=== PATIENT | female | born 1955 | race Caucasian/White ===

== ENCOUNTER → 2018-03-07 | Day surgery (SDC) | payer MEDICARE, BC ==
[2018-03-07 12:48] VITALS: BP 152/85; TEMP 97.4; BMI 40.3
== END ==
LOC: SDC/OP 11:07
PROVIDERS: ATTEND Specialist
DX: I12.0 Hypertensive chronic kidney disease with stage 5 chronic kidney disease or end stage renal disease (principal); N18.6 End stage renal disease; E78.5 Hyperlipidemia, unspecified; E03.9 Hypothyroidism, unspecified; K21.9 Gastro-esophageal reflux disease without esophagitis; G43.909 Migraine, unspecified, not intractable, without status migrainosus; G89.29 Other chronic pain; M19.90 Unspecified osteoarthritis, unspecified site; D64.9 Anemia, unspecified; Z53.9 Procedure and treatment not carried out, unspecified reason; Z88.2 Allergy status to sulfonamides; Z88.8 Allergy status to other drugs, medicaments and biological substances

== ENCOUNTER 2018-03-14 11:55 | Day surgery (SDC) | payer MEDICARE, BC ==
[2018-03-13 15:41] VITALS: BMI 39.6
[~2018-03-14 11:55] MED LIST: Iopamidol 370 76% 100 ML VIAL ONE
[2018-03-14] MEDS ORDERED: Midazolam HCl 2 mg/2 ml Vial ONE (14:38)
[2018-03-14] MEDS ORDERED: Fentanyl 100 MCG/2 ML VIAL ONE (14:38)
[2018-03-14] MEDS ORDERED: Sodium Chloride 0.9% 50 ML ONE (15:42)
[2018-03-14] MEDS ORDERED: Heparin 10,000 UNITS/ 10 ML VIAL ONE (16:00)
--- NOTE | 2018-03-14 16:22 | CT ---
CT GUIDED ABSCESS DRAINAGE 03/14/18 HISTORY: Persistent fluid collection within abdomen and pelvis concerning for abscess. TECHNIQUE/FINDINGS: Planning CT of the abdomen and pelvis with IV contrast was performed prior to the procedure. This blayne dy demonstrates unremarkable appearance of imaged bilateral lung bases aside from trace pleural fluid on the right. There is coronary arterial calcification noted, incompletely assessed. No free intraperitoneal air is noted. There is small volume free fluid in the perihepatic region, measuring up to 1.7 cm in AP dimension an terior to the left lobe of the liver. Tiny hypodense right hepatic lobe lesion measuring in the 4-5 m m range noted on axial image 17 and axial image 23, too small to characterize. Spleen is grossly unre markable. There is nonspecific small volume fluid between the gastric body laterally and the splenic hilum. There is free fluid noted in the left pericolic gutter. The pancreas and bilateral adrenal glands appear grossly unremarkable. Gallbladder appears surgically absent. The left kidney is markedly atrophic. The right kidney also demonstrates marked atrophy. These findin gs are consistent with the patient's history of end-stage renal disease. No lymphadenopathy identifie d in the abdomen or pelvis. The urinary bladder is markedly atrophic. Evaluation of the bowel is limited without oral contrast media. There is extensive diverticulosis of the colon, most prominent in the region of the sigmoid colon. There is a rim enhancing lobulated fluid collection in the anterior midline pelvis/right hemipelvis s uperior to a markedly atrophic urinary bladder. This fluid collection measures 10.2 x 6.2 cm and is s uspicious for possible abscess. There is nonspecific stranding of the adjacent mesenteric fat along t he superior and anterior margin of this fluid collection. There is nonspecific asymmetric increased fat in the retroperitoneum on the right encircling the righ t kidney and extending inferiorly into the right hemipelvis anterior to and lateral to the right psoa s muscle with ventral deviation of the ascending colon. This is of uncertain clinical significance. L ow grade liposarcoma of the retroperitoneum cannot be excluded. The uterus appears surgically absent. There is a nonspecific subcutaneous round lesion on the left anteriorly at the axial level of the lef t greater trochanter measuring 2.9 cm with Hounsfield units of approximately 26. A mildly complex noemi aceous cyst is favored. Clinical correlation is essential. There is multilevel lower lumbar spine facet hypertrophic change. Once this planning examination was performed, informed consent for CT guided abscess drainage was obtained. The patient received conscio us sedation by a member of the Division of Anesthesia during the procedure. Skin overlying the fluid collection was prepped and draped in normal sterile fashion with the patient on the CT scanner. A 5 F rench Yueh catheter was advanced into the collection and aspiration yields yellow fluid. A sample was obtained and sent to the Laboratory for assessment. Through the Yueh catheter, an Amplatz wire was advanced and curled within the fluid collection. 8 [facility] dilator was advanced and removed. Subsequently, an 8 Romanian all purpose drainage catheter was adv anced over the wire. The wire and inner stiffener was removed and the pigtail was formed within the c avity. Subsequently, approximately further aspiration yields thick yellow fluid with floating interna l debris. Approximately 85 total mL were removed. Pigtail was formed and the catheter was stitched in place. Postprocedural CT examination demonstrates the pigtail catheter to be well formed within the cavity with marked interval reduction in the size of the cavity. A small residual fluid collection is seen laterally measuring approximately 3.8 x 4.4 cm and a small inferior component is noted measurin g in the 2.5 cm range. Within the right lower quadrant mesentery, there are multiple round soft tissue nodules which measure up to 8-9 mm suggesting small nodes. Patient tolerated the procedure well. Patient was instructed to flush the catheter twice a day with 10 mL of sterile saline. The patient is scheduled to see Dr. Egan in clinic on , 03/16/18. IMPRESSION: 1. Successful drainage and catheter placement within pelvic fluid collection. 2. Nonspecific free fluid within the abdomen and pelvis. 3. Extensive diverticulosis without evidence for diverticulitis. 4. Nonspecific prominent fat in the retroperitoneum and the right perirenal and infrarenal regio n as described above. This may represent a large retroperitoneal lipoma or atypical lipomatous tumor, including low grade liposarcoma. Code T POS: KERI
--- NOTE | 2018-03-14 17:19 | PRG ---
DATE OF SERVICE: 03/14/2018 Ms. Tripathi arrived today to have a CT-guided drainage and intra-abdominal fluid collection under anest hesia due to anxiety regarding needles. Patient has a hemodialysis catheter. She does not have a fi stula. She has a fluid collection that Dr. An, Radiology, drained under CT guidance and drainage appeared to be purulent. She has been sent home with saline irrigations twice a day, instructed on irrigation and drainage. She will record the drainage output. The patient has been off antibiotics for more than a week and asymptomatic. Dr. Scott saw her previously and managed antibiotics from the [facility]. Apparently, she had a dialysis fluid that was positive for Helen and treated with Diflucan in January. She then had some nonspecific symptoms and had a repeat CAT scan demonstrated fluid collection, but she would not allow the radiologist there to drain that at the [facility]. Patient apparently was receiving vancomycin during dialysis, but this was discontinued about two weeks ago. Food Services Director is Dr. Lo. Today, she underwent CT guided drain age and Dr. An, radiologist, felt the fluid was purulent. I discussed these findings with Dr. Solares. I then wrote her a prescription for Cipro 250 mg p.o. b.i.d. for 10 days, Flagyl 250 p.o. t.i.d. for 10 days and Diflucan 100 mg p.o. for 14 days. She is instructed on drain irrigation, 10 mL of saline irrigating it twice a day and recording the output. She will return to see me in 48 hours to discus s the culture results and see how she is doing. We will probably arrange followup CAT scan next week .
== END 2018-03-14 16:55 | disposition home or self-care (01) ==
LOC: SDC/OP 11:55
PROVIDERS: ATTEND Specialist
PROC: 0W9J30Z Drainage of Pelvic Cavity with Drainage Device, Percutaneous Approach (ICD-10-PCS; principal; 2018-03-14)
DX: K65.1 Peritoneal abscess (principal); N73.9 Female pelvic inflammatory disease, unspecified; I12.0 Hypertensive chronic kidney disease with stage 5 chronic kidney disease or end stage renal disease; N18.6 End stage renal disease; D63.1 Anemia in chronic kidney disease; K57.30 Diverticulosis of large intestine without perforation or abscess without bleeding; M19.90 Unspecified osteoarthritis, unspecified site; Z99.2 Dependence on renal dialysis; Z88.2 Allergy status to sulfonamides; Z88.8 Allergy status to other drugs, medicaments and biological substances; Z91.048 Other nonmedicinal substance allergy status; Z79.02 Long term (current) use of antithrombotics/antiplatelets; Z79.82 Long term (current) use of aspirin; Z79.899 Other long term (current) drug therapy
CPT/HCPCS: 49406; 74177; 77002; 77012; 87070; 87205; C1729; A4216; J1644; J2250; J3010

== ENCOUNTER 2018-03-20 12:50 | Outpatient (CLI) | payer MEDICARE, BC ==
--- NOTE | 2018-03-20 14:04 | CT ---
NONCONTRAST CT ABDOMEN AND PELVIS: Date: 03/20/18 HISTORY: End-stage renal disease. Follow-up fluid collection in the pelvis post drainage catheter placement. COMPARISON: 03/14/18. FINDINGS: There is minimal atelectasis in the right middle lobe and lingula. Vascular calcifications seen in the coronary arteries and involving the abdominal aorta and iliac art eries. There is severe atrophy of the left kidney again present. There is also severe renal cortical thinnin g involving the right kidney with several subcentimeter too small to characterize hypodense lesions a gain involving the right kidney. Post cholecystectomy changes are noted. There is an All-Purpose drainage catheter seen within a fluid collection in the mid pelvis. The previ ously noted collection is smaller in size compared to the prior exam. Measurement of the collection i n a similar location compared to the prior exam demonstrates a transverse measurement of 6.8 cm and A P dimension of 4.4 cm, and on the prior study the collection measured 10.2 cm transverse x 6.2 cm AP. Collection was irregular in shape on the prior exam and other portions of the collection are also sm aller in size. The previously seen fluid collection lateral left abdomen in the region of the left paracolic gutter is again seen but is also decreased in size. There is fluid seen adjacent to the liver and spleen, and this fluid has also diminished adjacent to the spleen. The edema and stranding in the left upper quadrant has decreased from the prior exam. Subcentimeter low density foci in the right hepatic lobe are again noted. The spleen, pancreas, and bilateral adrenal glands demonstrate a grossly normal nonenhanced CT appear ance. The urinary bladder is completely decompressed. Numerous colonic diverticula are seen with increased density seen within several diverticula which ma y be related to prior contrast or fecaliths. There is evidence of hysterectomy. The previously noted increased fat in the right retroperitoneum is again seen. This is again of uncer tain clinical significance. 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 Nonspecific cystic lesion subcutaneous soft tissues anteriorly at the level of the greater trochanter on the left is again seen and unchanged. No other interval change. IMPRESSION: 1. Interval decrease in size of the lobulated pelvic fluid collection, although fluid collection valentin s persist. 2. Interval decrease in amount of fluid in the left paracolic gutter. 3. Interval decrease in the amount of fluid adjacent to the spleen and mesenteric edema in the left upper quadrant. 4. Stable amount of perihepatic fluid. 5. Severe atrophy left kidney with severe cortical thinning of the right kidney with several subcent imeter too small to characterize hypodense lesions involving the right kidney. 6. Nonspecific prominent fat in the retroperitoneum in the right perirenal and infrarenal location. This may represent a large retroperitoneal lipoma or atypical lipomatous lesion, including low grade liposarcoma. 7. Remainder of the findings are as described above. POS: [facility]
== END 2018-03-20 12:51 | disposition home or self-care (01) ==
LOC: SCSCT 12:50
PROVIDERS: ATTEND Specialist
DX: N18.6 End stage renal disease (principal); L02.211 Cutaneous abscess of abdominal wall; N26.1 Atrophy of kidney (terminal); N28.89 Other specified disorders of kidney and ureter; Z98.890 Other specified postprocedural states
CPT/HCPCS: 74176

== ENCOUNTER 2018-03-27 09:57 | Outpatient (CLI) | payer MEDICARE, BC ==
--- NOTE | 2018-03-27 11:54 | ULT ---
BILATERAL UPPER EXTREMITY VENOUS MAPPING FOR DIALYSIS ACCESS: HISTORY: A 62-year-old with a history of ESRD. FINDINGS: RIGHT CEPHALIC VEIN: Proximal humerus 1.4 mm Mid humerus 1.4 mm Distal 1.9 mm Elbow 4.2 mm Proximal forearm 0.9 mm Mid 1.2 mm Distal 1.1 mm RIGHT BASILIC VEIN: Proximal humerus 4.3 mm Mid humerus 2.7 mm Distal 2.6 mm Elbow 1.1 mm Proximal forearm 1.0 mm Mid 0.8 mm Distal 0.8 mm RIGHT BRACHIAL ARTERY: 4.3 mm RIGHT RADIAL ARTERY: 1.7 mm RIGHT ULNAR ARTERY: 0.8 mm LEFT CEPHALIC VEIN: Proximal humerus 1.3 mm Mid humerus 1.2 mm Distal 1.5 mm Elbow 3.4 mm Proximal forearm 1.6 mm Mid 1.2 mm Distal 0.8 mm LEFT BASILIC VEIN: Proximal humerus 2.2 mm Mid humerus 1.8 mm Distal 1.3 mm Elbow 0.8 mm Proximal forearm 0.6 mm Mid 0.9 mm Distal 0.6 mm LEFT BRACHIAL ARTERY: 4.6 mm RADIAL ARTERY: 1.7 mm ULNAR ARTERY: 2.0 mm POS: [facility]
== END 2018-03-27 09:58 | disposition home or self-care (01) ==
LOC: SCSULT 09:57
PROVIDERS: ATTEND Specialist
DX: Z01.818 Encounter for other preprocedural examination (principal); N18.6 End stage renal disease
CPT/HCPCS: 93970; G0365

== ENCOUNTER 2018-05-03 09:41 | Outpatient (CLI) | payer MEDICARE, BC ==
[2018-05-03 11:15] LABS: #Basophils 0.1 thou/uL (0.0-0.2); #Eosinphils 0.3 thou/uL (0.0-0.7); #Lymphocytes 1.2 thou/uL (1.20-3.40); #Monocytes 0.4 thou/uL (0.11-0.59); #Neutrophils 5.5 thou/uL (1.40-6.50); %Basophils 0.7 % (0.0-1.0); %Eosinophils 3.8 % (0.0-10.0); %Lymphocytes 16.1 % (21.0-51.0); %Monocytes 5.8 % (0.0-10.0); %Neutrophils 73.6 % (42.0-75.0); Hemoglobin 10.5 g/dL (12.0-16.0); Mean Corpuscular HGB CONC 32.9 g/dL (32.0-36.0); Mean Corpuscular Hemoglobin 33.3 pg (27.0-31.0); Mean Platelet Volume 8.8 fL (7.4-10.4); Platelet Count 185 thou/uL (130-400); RBC Distribution Width 15.1 % (11.5-14.5); Red Blood Cell (RBC) Count 3.16 mill/uL (4.20-5.40); White Blood Cell (WBC) Count 7.5 thou/uL (4.8-10.8)
[2018-05-03 11:31] LABS: Anion Gap 14 mmol/L (10-20); BUN (Urea Nitrogen) 20 mg/dL (9.8-20.1); Calc. Creatinine Clearance 0 mL/min (70-130); Carbon Dioxide 33 mmol/L (23-31); Chloride 99 mmol/L (98-107); Estimated GFR-MDRD 7; Glucose 111 mg/dL (80-115); Potassium 3.6 mmol/L (3.5-5.1); Sodium 142 mmol/L (136-145)
== END 2018-05-03 09:42 | disposition home or self-care (01) ==
LOC: LABBT 09:41
PROVIDERS: ATTEND Specialist
DX: Z01.818 Encounter for other preprocedural examination (principal); N18.6 End stage renal disease; K65.1 Peritoneal abscess; L72.3 Sebaceous cyst
CPT/HCPCS: 80048; 85025; 93005; 93010

== ENCOUNTER 2018-05-09 09:18 | Day surgery (SDC) | payer MEDICARE, BC ==
[2018-05-03 09:57] VITALS: BMI 38.4
--- NOTE | 2018-05-03 12:11 | HP ---
HISTORY OF PRESENT ILLNESS: Tonja Tripathi is a 62-year-old female who has had a previous peritoneal di alysis catheter removed because of infection. She had a fluid collection that was CT guided drained. Catheter was removed. She had a question of retroperitoneal fatty collection that was felt to be j ust fatty tissue and not a tumor. The patient required anesthesia for CT guided drainage due to her phobia, anxiety. She is followed by Dr. hZu. Her transistor tester is Dr. Lo. She dialyzes Tuesday, Tuesday, and Tuesday at [facility] at 3:30 p.m. Consideration for a fistula placement was given and vein mapping performed revealing suboptimal veins. She denies placem ent of an attempted fistula in her arm and wants to proceed with laparoscopic PD catheter. She wears her beltline at the exit site of her previous PD catheter and would like it higher at the umbilical level. She is morbidly obese with a dependent pannus. We have also discussed weight loss surgery in the past, place her in the weight range for renal transplant. The patient states she has lost 10 po unds on her own and only has 2 pounds to lose to reach her goal for entry into the renal transplant. MEDICATIONS: Clonidine 0.3 mg twice a day, Crestor 5 mg once a day, Singulair 10 mg evening, Sensipa r 30 mg a.c. once a day, aspirin 81 mg a day, Renvela 800 mg 3 tablets with meals 3 times a day, fish oil daily, D3 daily, calcium acetate daily, minoxidil 2.5 mg as needed twice a day. Hydrocodone 5/3 25 p.r.n. pain, allopurinol 100 mg daily, Alpha Lipoic Acid, calcitriol, Colace, Dulcolax, Fosrenol, levothyroxine daily, Midodrine p.r.n., Plavix 75 mg a day, Symbicort as needed, turmeric daily, vitam in B12 daily. PAST SURGICAL HISTORY: Hysterectomy, cardiac stress test 2009, normal, tonsillectomy 1975. CT-guide d drainage abdomen/pelvis, PD catheter placed and removed. PAST MEDICAL HISTORY: 1. Anemia. 2. Arthritis. 3. Hypertension. 4. End-stage renal disease on maintenance dialysis Tuesday, Tuesday, and Tuesday 3:30 p.m. at [facility] 5. Morbid obesity. 6. Metabolic syndrome. 7. Anxiety. FAMILY HISTORY: Negative. REVIEW OF SYSTEMS: Noncontributory. PHYSICAL EXAMINATION: VITAL SIGNS: Weight 210 pounds, 5 foot 2, 38 BMI, 145/73, 73, 99.3 degrees. HEENT: Unremarkable. LUNGS: Clear to auscultation. CARDIAC: Regular rate and rhythm without murmur or gallop. ABDOMEN: Soft, obese, dependent pannus. Scar from previous peritoneal dialysis access site left low er quadrant well healed. Scar umbilical area, well healed, no evident hernia. EXTREMITIES: No ankle edema, palpable pedal pulses. LYMPH: No lymphadenopathy groins, neck, axilla. NEURO: Cranial nerves intact. No neurological deficits. SKIN: Skin color normal. ASSESSMENT AND PLAN: End-stage renal disease with suboptimal veins on ultrasound vein mapping. Refu ses exploration of her veins for primary fistula. We will plan laparoscopic peritoneal dialysis cath eter placement as an outpatient. Risk of infection, bleeding, reoperation discussed, she consents. Malfunction of catheter possibilities discussed. Questions answered.
[2018-05-09] MEDS ORDERED: Glycopyrrolate 0.2 MG/ML 5 ML SYRINGE ONE (10:02)
[2018-05-09] MEDS ORDERED: Lidocaine 1% PF 5 ML VIAL ONE (10:02)
[2018-05-09] MEDS ORDERED: PROPOFOL 200 MG/20 ML VIAL ONE (10:02)
[2018-05-09] MEDS ORDERED: Metoclopramide HCl 10 MG/2 ML VIAL ONE (10:02)
[2018-05-09] MEDS ORDERED: Ondansetron HCl/PF 4 MG/2 ML Vial ONE (10:02)
[2018-05-09] MEDS ORDERED: Fentanyl 100 MCG/2 ML VIAL ONE (14:02)
[2018-05-09] MEDS ORDERED: traMADol HCl 50 MG TAB ONE (15:27)
[2018-05-09] MEDS ORDERED: Heparin 10,000 UNITS/ 10 ML VIAL ONE ×2 (17:35)
--- NOTE | 2018-05-09 19:43 | OP ---
PREOPERATIVE DIAGNOSES: End-stage renal disease, obesity, history of infected peritoneal dialysis ca theter, history of percutaneous drainage fluid collection in abdomen, sebaceous cyst left lower quadr ant abdominal wall, left groin. POSTOPERATIVE DIAGNOSES: End-stage renal disease, obesity, history of infected peritoneal dialysis c atheter, history of percutaneous drainage fluid collection in abdomen with right pelvic abscess, wall ed off by the omentum, sebaceous cyst left lower quadrant abdominal wall, left groin. PROCEDURE: laparoscopic evacuation of pelvic abscess, laparoscopic adhesiolysis, laparoscopic omento pexy. Excision of sebaceous cyst, left lower quadrant, left groin. A 5 cm incision, layered closure . SURGEON: Dr. Roosevelt Egan. ANESTHESIA: General. Local 0.5% Marcaine with epinephrine, 30 mL, mixed with 2% Xylocaine, 10 mL. Note, during the operation because of the findings of the green purulent fluid, walled off as describ ed even though this most likely was a sterile collection, peritoneal dialysis catheter was not placed and we placed a later time. PROCEDURE IN DETAIL: The patient was to the operating room under general anesthesia, abdomen was pre pared with ChloraPrep, draped in routine fashion. Local anesthetic infiltrated into the skin and sub cutaneous tissue about each port site. Left lateral subcostal incision made. Pneumoperitoneum to 15 mmHg obtained with the Veress needle, replacing it with a 5 port. Right lateral subcostal incision made and a 5-port placed laparoscopic visualization. An incision was made in the right lower quadran t for a counter incision for the plan of placement of peritoneal dialysis catheter, 8 mm port placed under laparoscopic visualization directed caudally and the rectus sheath into the pelvis for adhesiol ysis and eventual placement of the catheter. Once the omentum was peeled back away from the right pe lvis, there was noted to be a green purulent thick discharge that was evacuated. This cavity was ope andrew even more irrigated and evacuated, and was felt at that this time that I should not place a perit pascal dialysis catheter even though this was likely a sterile collection. To accomplish omentopexy a nd adhesiolysis, left lateral incision made and left lower quadrant incision made and a 5-port placed . Omentum carefully dissected free from the viscera from the pelvis freeing it and perform omentopex y with 2-0 Ethibond sutures, GraNee needle fast secured to the upper abdomen. Abdominal cavity irrig ated. There were no adhesions otherwise seen. At this point, the abdominal cavity irrigated, irriga nt evacuated, pneumoperitoneum evacuated. All instruments were removed. Left lower quadrant incision was made and carried down the skin and subcutaneous tissue and sebaceous cyst dissected free, excised. Hemostasis gained with the cautery. Subcutaneous tissues approximate d with 3-0 Monocryl, skin with subdermal 4-0 Monocryl and DermaGlue applied. The patient tolerated t he procedure well. Dermabond applied.
--- NOTE | 2018-05-12 05:57 | PQF ---
[facility] POST DISCHARGE CLINICAL DOCUMENTATION IMPROVEMENT CLARIFICATION FORM l Todays Date: 05/11/18 l Patients Name MINDY POON l l Admit Date 05/09/18 l Disch Date 05/09/18 Multiplex Operator Name Bereket Rowley Email: [email or web address] Cell: [phone] Present Clinical Indicators - Signs / Symptoms Results and Location in Medical Record [ ] Documentation of: [ ] [ ] Documentation of: [ ] [ ] Documentation of: [ ] [ ] Documentation of: [ ] [ ] Risks [ ] [ ] [ ] Treatment [ ] Epidermal inclusion cyst of L groin Please specify size of excised cyst with adequate margins in Operative Report [ ] [ ] Roosevelt Barajas The documentation in this patients record requires clarification to ensure coding compliance and accuracy. Check the appropriate box and include in your discharge summary. [ ] [ ] [ ] [ ] Please check this box if this does not apply to this patient [ ] Unable to determine [ ] Other diagnosis: Review the following information and exercise your independent professional judgment in responding to the clarification. Based upon the clinical findings, risk factors, and treatment, please clarify if you are treating one of the above probable or suspected diagnoses. Physician Signature: Date Time MTDD
--- NOTE | 2018-06-30 09:42 | PQF ---
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 Check the appropriate box and include in your discharge summary/addendum. [ ] [ ] [ ] Please check this box if this does not apply to this patient [ ] Unable to determine [ ] Other diagnosis/procedure: Review the following information and exercise your independent professional judgment in responding to the clarification. Based upon the clinical findings, risk factors, and treatment, please clarify if you are treating one of the above probable or suspected diagnoses. Physician Signature: Date Time MTDD
== END 2018-05-09 17:45 | disposition home or self-care (01) ==
LOC: SDC 09:18
PROVIDERS: ATTEND Specialist
PROC: 0DNW4ZZ Release Peritoneum, Percutaneous Endoscopic Approach (ICD-10-PCS; principal; 2018-05-09)
PROC: 0DQU4ZZ Repair Omentum, Percutaneous Endoscopic Approach (ICD-10-PCS; 2018-05-09)
PROC: 0HBAXZZ Excision of Inguinal Skin, External Approach (ICD-10-PCS; 2018-05-09)
DX: K66.0 Peritoneal adhesions (postprocedural) (postinfection) (principal); L72.0 Epidermal cyst; I12.0 Hypertensive chronic kidney disease with stage 5 chronic kidney disease or end stage renal disease; N18.6 End stage renal disease; F41.9 Anxiety disorder, unspecified; M19.90 Unspecified osteoarthritis, unspecified site; E88.81 Metabolic syndrome and other insulin resistance; E66.01 Morbid (severe) obesity due to excess calories; Z68.38 Body mass index [BMI] 38.0-38.9, adult; Z99.2 Dependence on renal dialysis; Z79.899 Other long term (current) drug therapy; Z79.82 Long term (current) use of aspirin; Z88.2 Allergy status to sulfonamides; Z91.048 Other nonmedicinal substance allergy status; Z88.8 Allergy status to other drugs, medicaments and biological substances; Z91.041 Radiographic dye allergy status; Z79.02 Long term (current) use of antithrombotics/antiplatelets
CPT/HCPCS: 88304; 96374; J1644; J2001; J2405; J2704; J2765; J3010

== ENCOUNTER 2018-06-27 11:10 | Day surgery (SDC) | payer MEDICARE, BC ==
--- NOTE | 2018-06-23 14:22 | HP ---
HISTORY OF PRESENT ILLNESS: Tonja Tripathi is a 62-year-old female who has only been on perit pascal dialysis, but had that removed because of infection in [facility]. She dev eloped a large fluid collection, had CT guided drainage. Syriac catheter was removed. She had a que stion of retroperitoneal fatty collection, was felt to be just fatty tissue and not a tumor. The pat ient required anesthesia for CT-guided drainage due to her phobia and anxiety for meals. She is foll owed by Dr. Zhu. Pad Extraction Tender is Dr. Lo. She dialyzes Tuesday, Tuesday, and Tuesday. Consultat ion of [facility] at 3:30 p.m. Consideration for dialysis fistula was given, but ultr asound vein mapping reveals suboptimal veins. She would probably most likely require prosthetic xavi t. She requests to return to peritoneal dialysis. She recently on May 09, 2018, underwent laparos copy and findings were then her right pelvis was purulent material and unroofed by fatty tissue. Thi s was in the small focus. Otherwise, abdominal cavity was unremarkable. She had adhesiolysis and ev acuation of the area and inspection and at that time, the catheter was not placed. At this time, we will plan laparoscopic peritoneal dialysis catheter after adequate time. She hopes to lose weight to get again to meet criteria for renal transplant. MEDICATIONS: Clonidine 0.3 mg twice a day, Crestor 5 mg a day, Singulair 10 mg evening, Sensipar 30 mg a.c once a day, aspirin 81 mg a day, Renvela 800 mg 3 tablets with meals three times a day, fish o il daily, D3 daily, calcium acetate daily, minoxidil 2.5 mg as needed twice a day, hydrocodone 5/325 p.r.n. pain, allopurinol 100 mg a day, alpha lipoic acid, calcitriol, Colace, Dulcolax, Fosrenol, lev othyroxine daily, midodrine p.r.n., Plavix 75 mg a day, Symbicort as needed, tumeric daily, vitamin B 12 daily. PAST SURGICAL HISTORY: Hysterectomy, cardiac stress test in 2009, normal. Normal tonsillectomy in . CT-guided drains in abdomen and pelvis, PD catheter placed and removed as noted above. Laparos copy recently as described. PAST MEDICAL HISTORY: Anemia, arthritis, obesity, hypertension, end-stage renal disease, maintenance dialysis Tuesday, Tuesday, Tuesday, and Tuesday at 3:30 p.m., [facility], metab olic syndrome, anxiety. FAMILY HISTORY: Negative. REVIEW OF SYSTEMS: Noncontributory otherwise. PHYSICAL EXAMINATION: VITAL SIGNS: Weight 207 pounds, 62 inches, 154/74, 76, 97.6 degrees. HEENT: Unremarkable. LUNGS: Clear to auscultation. CARDIAC: Regular rate and rhythm without murmur or gallop. ABDOMEN: Soft. Mild tenderness. Surgical laparoscopic wounds well healed. No guarding, no rebound . Obese abdomen, pannus present. EXTREMITIES: Unremarkable. ASSESSMENT AND PLAN: End-stage renal disease with problems as noted above. PLAN: Laparoscopic peritoneal dialysis catheter. She understands risks, benefits, and consents.
[2018-06-26 12:49] VITALS: BMI 35.3
[2018-06-27] MEDS ORDERED: Heparin 10,000 UNITS/1 ML VIAL ONE (11:22)
[2018-06-27] MEDS ORDERED: Bupivacaine HCl 0.5%/Epinephrine 1:200,000/PF 30 ml Vial ONE (11:22)
[2018-06-27] MEDS ORDERED: Lidocaine 2% PF Inj 2 ML VIAL ONE (11:22)
[2018-06-27] MEDS ORDERED: Fentanyl 100 MCG/2 ML VIAL ONE ×2 (11:33)
[2018-06-27] MEDS ORDERED: Scopolamine 1.5 mg/72 hour Patch ONE (11:47)
[2018-06-27] MEDS ORDERED: Gentamicin 80 MG/2 ML VIAL ONE (11:47)
[2018-06-27 11:49] LABS: #Basophils 0.1 thou/uL (0.0-0.2); #Eosinphils 0.2 thou/uL (0.0-0.7); #Lymphocytes 1.7 thou/uL (1.20-3.40); #Monocytes 0.5 thou/uL (0.11-0.59); #Neutrophils 5.2 thou/uL (1.40-6.50); %Basophils 0.8 % (0.0-1.0); %Eosinophils 2.8 % (0.0-10.0); %Lymphocytes 22.2 % (21.0-51.0); %Neutrophils 67.2 % (42.0-75.0); Mean Corpuscular HGB CONC 30.6 g/dL (32.0-36.0); Mean Corpuscular Hemoglobin 29.9 pg (27.0-31.0); Mean Corpuscular Volume 97.8 fL (78.0-98.0); Mean Platelet Volume 8.8 fL (7.4-10.4); Platelet Count 292 thou/uL (130-400); RBC Distribution Width 16.7 % (11.5-14.5); Red Blood Cell (RBC) Count 3.35 mill/uL (4.20-5.40); White Blood Cell (WBC) Count 7.7 thou/uL (4.8-10.8)
[2018-06-27 12:09] LABS: Anion Gap 12 mmol/L (10-20); BUN (Urea Nitrogen) 7 mg/dL (9.8-20.1); Calc. Creatinine Clearance 21 mL/min (70-130); Calcium 9.5 mg/dL (7.8-10.44); Carbon Dioxide 34 mmol/L (23-31); Chloride 97 mmol/L (98-107); Estimated GFR-MDRD 12; Glucose 88 mg/dL (80-115); Potassium 3.5 mmol/L (3.5-5.1); Sodium 139 mmol/L (136-145)
[2018-06-27] MEDS ORDERED: Bupivacaine/Epinephrine 0.25% 30 ML VIAL ONE (12:30)
--- NOTE | 2018-06-27 14:21 | OP ---
DATE OF PROCEDURE: 06/27/2018 PREOPERATIVE DIAGNOSES: Morbid obesity, end-stage renal disease, desires peritoneal dialysis, previo usly removed peritoneal dialysis catheter, previously percutaneous drainage of fluid collection right pelvis and fatty fluid collection of right retroperitoneum deemed benign. POSTOPERATIVE DIAGNOSES: Morbid obesity, end-stage renal disease, desires peritoneal dialysis, prev iously removed peritoneal dialysis catheter, previously percutaneous drainage of fluid collection rig ht pelvis and fatty fluid collection of right retroperitoneum deemed benign. PROCEDURE: Laparoscopic peritoneal dialysis catheter placement, laparoscopic adhesiolysis. FINDINGS: Inflammatory response with viscera apparent omentum adherent to the anterior abdominal wal l midline, left of midline and more extensively right of midline, more extensively into the pelvis, n ot all adhesions taken down due to dense inflammation and tends to avoid bowel injury. Probable ster ile inflammatory response and fatty tissue, right abdomen. SURGEON: Roosevelt Egan M.D. ANESTHESIA: General. Local 0.25% Marcaine with epinephrine, 30 mL, mixed with 0.5% Marcaine with ep inephrine, 30 mL, mixed with 2% Xylocaine, 10 mL. Note if this peritoneal dialysis catheter does not function well, there is probably not much I can do laparoscopically and it will need to be removed a nd hemodialysis access established. PROCEDURE: The patient was taken to the operating room where under general anesthesia, abdomen was p repared with ChloraPrep, draped in routine fashion. Local anesthetic mixture infiltrating skin and s ubcutaneous tissue about each port site. Right lateral subcostal and left lateral subcostal incision made and pneumoperitoneum to 15 mmHg obtained with the Veress needle, replacing it with a 5 port, vi mathieu laparoscope inserted. Contralateral 5 port placed under laparoscopic visualization. There were adhesions requiring placement of additional port in more lateral left subcostal incision. Adhesiolys is taken down bluntly with cold scissors, freeing filmy adhesions of fatty tissue from the anterior a bdominal wall. This information was more intense in the right lower quadrant, right upper pelvis and lower pelvis. There were some inflammatory changes and fat saponification taken down bluntly. Care taken to avoid bowel injury. I thoroughly irrigated the area, saline irrigant evacuated. I did yaniv luate the midline retropubic area and this is mostly around the fatty tissue. Omentopexy was perform ed last operation. Despite that, the patient had the adhesions and inflammatory response described. I thoroughly irrigated the abdominal cavity and it was decided to place the peritoneal dialysis cath eter in left lower abdomen as the right abdomen had too much of inflammatory action. Local anestheti c infiltrated into the skin and subcutaneous tissue about the peritoneal dialysis catheter placement site. Counter incision was made above the umbilicus, left of midline and 8 mm port placed, tunnel di rected caudally through the rectus sheath visualized laparoscopically penetrated peritoneum caudally. Peritoneal dialysis catheter placed. Internal cuff placed in the rectus sheath, removing an 8 mm p ort in planned exit site in the left lower quadrant was made and a [place] dissector were placed bet ween this and the counter incision, grasping the catheter and tunnel it, placing the external cuff be neath the skin exit site. Subcutaneous tissues approximated with 3-0 Monocryl, skin with subdermal 4 -0 Monocryl. The port was flushed with a heparin saline solution 1000 units heparin per [address] erile dressings applied. Irrigant and pneumoperitoneum evacuated. The catheter was placed as well a s possible. His pneumoperitoneum and irrigant evacuated. All instruments removed and all skin incis ions approximated with interrupted subdermal 4-0 Monocryl and DermaGlue and sterile dressing applied. It should be noted that in the future this peritoneal dialysis catheter does not work, it would need to be removed. Further efforts to salvage it laparoscopically would probably not be worthwhile. She will need a hemodialysis access and her veins are poor on preoperative mapping on 03/2018.
[2018-06-27] MEDS ORDERED: traMADol HCl 50 MG TAB ONE (16:02)
[2018-06-27] MEDS ORDERED: Heparin 10,000 UNITS/ 10 ML VIAL ONE (17:07)
== END 2018-06-27 17:25 | disposition home or self-care (01) ==
LOC: SDC 11:10
PROVIDERS: ATTEND Specialist
PROC: 0WHG43Z Insertion of Infusion Device into Peritoneal Cavity, Percutaneous Endoscopic Approach (ICD-10-PCS; principal; 2018-06-27)
DX: I12.0 Hypertensive chronic kidney disease with stage 5 chronic kidney disease or end stage renal disease (principal); N18.6 End stage renal disease; D63.1 Anemia in chronic kidney disease; K66.0 Peritoneal adhesions (postprocedural) (postinfection); F41.9 Anxiety disorder, unspecified; E66.01 Morbid (severe) obesity due to excess calories; Z68.35 Body mass index [BMI] 35.0-35.9, adult; Z79.02 Long term (current) use of antithrombotics/antiplatelets; Z79.82 Long term (current) use of aspirin; Z79.899 Other long term (current) drug therapy; Z88.2 Allergy status to sulfonamides; Z88.8 Allergy status to other drugs, medicaments and biological substances; Z91.041 Radiographic dye allergy status; Z99.2 Dependence on renal dialysis
CPT/HCPCS: 80048; 85025; C1769; J0131; J0670; J1580; J1644; J3010; J3370

== ENCOUNTER 2018-11-17 07:48 | Day surgery (SDC) | payer MEDICARE, BC ==
--- NOTE | 2018-11-15 11:54 | HP ---
HISTORY OF PRESENT ILLNESS: Tonja Tripathi is a 63-year-old female undergoing dialysis at [facility] in [place] every Tuesday, Tuesday, and Tuesday. She has done peritoneal dialysis in the past. She has had cystic mass in the right retroperitoneum evaluated multiple scans at [facility] determined to be benign. She has had this aspirated in the past. This required a general anesthetic as she has needle phobia. The patient has had peritoneal dialysis catheters replaced and removed and rested due to infections. More recent peritoneal dialysis catheter placed, noted essentially inaccessible pelvis. We went and placed the last peritoneal dialysis catheter. It was noted to be obliterated pelvis due to adhesions, but there was a space available that perhaps the catheter might work, but unfortunately has not worked for peritoneal dialysis. She reports office today to discuss this. Last year, she had ultrasound vein mapping suggesting that her basilic vein might be available on the right. She is right handed. She has a fracture in right wrist, has worn a splint at this time. Today, we discussed extensively the fact that it was unlikely that any other attempts of peritoneal dialysis catheter placement would be futile. I have recommended removal of her PD catheter and exploration of her arm to try to establish a fistula. The patient wants to avoid her dominant right arm. We will plan placement of a left arm fistula, possible prosthetic graft. She understands the risks and benefits of procedure and consents. We will plan this as an outpatient. She dialyzes Tuesday, Tuesday, and Tuesday afternoon. We will plan this on Tuesday or Tuesday. We will plan general anesthetics and she wants to have her left arm functional due to limitation in right hand due to recent wrist fracture, for which she has worn a splint. MEDICATIONS: 1. Clonidine p.r.n. 2. Crestor daily. 3. Singulair daily. 4. Sensipar once a day. 5. Aspirin 81 mg a day. 6. Renvela 3 times a day with meals. 7. Vitamin D3. 8. Allopurinol 100 mg daily. 9. Valproic acid daily. 10. Fosrenol daily. 11. Levothyroxine daily. 12. Midodrine daily. 13. Plavix daily. 14. ProAir and Symbicort daily. 15. Turmeric. 16. Vitamin B12 daily. PAST MEDICAL HISTORY: Anemia, arthritis, end-stage renal disease on maintenance dialysis, and hypertension. PAST SURGICAL HISTORY: Hysterectomy in 2002, tonsillectomy in 1975. CT-guided drainage of abdominal fluid collection previous drainage at [facility] in the past, laparoscopic evaluation of pelvic fluid collection, adhesions and excision of sebaceous cyst, left lower quadrant groin in 05/22/2018, laparoscopic PD catheter placed Removal of catheter and replacement of the catheter still does not working well. ALLERGIES: SULFA AND IODINE. SOCIAL HISTORY: The patient is retired. Tobacco, none. Alcohol, none. She is followed by Dr. Estrada and Dr. Rio Lo. She dialyzes at [facility] in [place] every Tuesday, Tuesday, and Tuesday. PHYSICAL EXAMINATION: VITAL SIGNS: Weight 185 pounds, height 62 inches. Blood pressure 125/67, pulse 72, and temperature 98 degrees. GENERAL: She has worn a splint on the right wrist. She is right handed. HEAD, EARS, EYES, NOSE, AND THROAT: Unremarkable. NEUROLOGIC: Intact. No focal deficits. NECK: Without masses. LUNGS: Clear to auscultation. CARDIAC: Regular rate and rhythm without murmur or gallop. ABDOMEN: Soft and nontender. Peritoneal dialysis catheter in lower abdomen. EXTREMITIES: Palpable radial pulses in both wrist. Splint in right wrist. ASSESSMENT AND PLAN: 1. End-stage renal disease, who has failed peritoneal dialysis due to a frozen pelvis. We will plan placement of left arm fistula (nondominant arm) and possible prosthetic graft. She understands risks of infection, bleeding, reoperation, possible revision, possible second-stage operation, possible thrombosis of the fistula and required second operation and wishes to proceed. Removal of PD catheter under same anesthesia. 2. No history of coronary artery disease. She had a cardiac stress test. Catheterization in the past that was normal. She has been treated for endocarditis in the past, but has resolved. Job ID: [id number]
[2018-11-16 13:33] VITALS: BMI 32.9
[2018-11-17 08:50] LABS: #Basophils 0.1 thou/uL (0.0-0.2); #Eosinphils 0.4 thou/uL (0.0-0.7); #Lymphocytes 1.2 thou/uL (1.20-3.40); #Monocytes 0.5 thou/uL (0.11-0.59); %Basophils 1.2 % (0.0-1.0); %Eosinophils 8.1 % (0.0-10.0); %Lymphocytes 23.9 % (21.0-51.0); %Monocytes 9.2 % (0.0-10.0); %Neutrophils 57.5 % (42.0-75.0); Hemoglobin 11.9 g/dL (12.0-16.0); Mean Corpuscular HGB CONC 30.8 g/dL (32.0-36.0); Mean Corpuscular Hemoglobin 30.8 pg (27.0-31.0); Mean Platelet Volume 9.8 fL (7.4-10.4); Platelet Count 152 thou/uL (130-400); RBC Distribution Width 17.5 % (11.5-14.5); Red Blood Cell (RBC) Count 3.86 mill/uL (4.20-5.40); White Blood Cell (WBC) Count 5.1 thou/uL (4.8-10.8)
[2018-11-17 09:21] LABS: Anion Gap 19 mmol/L (10-20); BUN (Urea Nitrogen) 37 mg/dL (9.8-20.1); Calc. Creatinine Clearance 13 mL/min (70-130); Calcium 9.6 mg/dL (7.8-10.44); Carbon Dioxide 32 mmol/L (23-31); Chloride 100 mmol/L (98-107); Estimated GFR-MDRD 7; Glucose 80 mg/dL (80-115); Potassium 5.1 mmol/L (3.5-5.1); Sodium 146 mmol/L (136-145)
[2018-11-17] MEDS ORDERED: Protamine Sulfate 50 MG/5 ML VIAL ONE (10:00)
[2018-11-17] MEDS ORDERED: Heparin 5,000 UNITS/ML VIAL ONE (10:00)
[2018-11-17] MEDS ORDERED: Bupivacaine HCl 0.5%/Epinephrine 1:200,000/PF 30 ml Vial ONE (10:00)
[2018-11-17] MEDS ORDERED: Lidocaine 2% PF 5 ML VIAL ONE (10:00)
[2018-11-17] MEDS ORDERED: Scopolamine 1.5 mg/72 hour Patch ONE (10:02)
[2018-11-17] MEDS ORDERED: Fentanyl 100 MCG/2 ML VIAL ONE (10:04)
[2018-11-17] MEDS ORDERED: Promethazine HCl 25 MG/ML VIAL ONE (11:13)
[2018-11-17] MEDS ORDERED: PHENYLEPHRINE-NS 100 MCG/ML 10 ML SYRINGE ONE ×2 (12:05→15:07)
--- NOTE | 2018-11-17 12:46 | OP ---
DATE OF PROCEDURE: 11/17/2018 PREOPERATIVE DIAGNOSIS: End-stage renal disease, dysfunctional peritoneal dialysis catheter (multiple adhesions, status post several replacements without function). POSTOPERATIVE DIAGNOSIS: End-stage renal disease, dysfunctional peritoneal dialysis catheter (multiple adhesions, status post several replacements without function). PROCEDURES PERFORMED: Left arm primary fistula perforating branch antecubital vein, outflow primary cephalic vein, although communication in basilic vein noted, 3.5 mm coronary dilator probing the outflow. Note, good Doppler signal in AC area and poor Doppler signal in left upper arm, may need a future fistulogram. Removal of PD catheter. ANESTHESIA: General, local of 0.5% Marcaine with epinephrine 30 mL mixed with 2% Xylocaine 10 mL, total volume mixture used. DESCRIPTION OF PROCEDURE: The patient was taken to the operating room, where under general anesthesia (the patient had a right wrist fracture, did not want regional anesthesia). Her abdomen and left upper extremity were prepared with ChloraPrep and draped in routine fashion. Local anesthetic mixture was infiltrated into the skin and subcutaneous tissue about the operative sites. Incision was made in the proximal volar forearm carried down to skin and subcutaneous tissue, and adequate cephalic vein and antecubital vein identified. For this reason, incision was made in the left wrist and adequate cephalic vein at the wrist noted and subcutaneous tissue was approximated with 3-0 Monocryl, skin with subdermal 4-0 Monocryl, and [place] glue applied. Perforating branch antecubital vein dissected free and the patient given 6000 units of heparin intravenously. Branches of the perforating branch antecubital vein clipped and divided, and it was spatulated over branch points and interrogated with coronary dilators, passing coronary dilators from 2 mm to 3.5 mm dilator, the full length of the dilators out the cephalic vein outflow tract without restriction. There was good backbleeding. The proximal artery and radial artery were small, but without arteriosclerotic disease. Brachial ulnar and proximal radial artery dissected free and clamped. Longitudinal arteriotomy was made for 3 cm anastomosis elongating the proximal radial arteriotomy with Castillo scissors, and end perforating branch antecubital vein to side proximal artery anastomosis was created with continuous suture of 6-0 Prolene. Vascular clamps were released and there was good flow in the fistula as noted above. There was a good Doppler signal in the antecubital area and the distal cephalic vein outflow tract above the antecubital fossa, but less prominent signal perhaps because of her obesity and deeper vein. She may need a fistulogram in the future. The patient had a communicating branch to the basilic vein that was not interrogated. Retrograde antecubital vein preserved. Good hemostasis was noted as good outflow noted in branch and vascular control was gained with 4-0 silk ties and clips. The patient given 25 mg of protamine intravenously. Good hemostasis noted. Subcutaneous tissue was approximated with 3-0 Monocryl, skin with subdermal 4-0 Monocryl, and [place] glue applied. The peritoneal dialysis catheter and double-cuffed pigtail were removed by dissecting to the exit site. Gauze dressing applied. The patient tolerated the procedure well. Job ID: [id number]
[2018-11-17] MEDS ORDERED: Sodium Chloride 0.9% 100 ML ONE (14:15)
[2018-11-17] MEDS ORDERED: Heparin 10,000 UNITS/ 10 ML VIAL ONE ×3 (14:15→15:07)
[2018-11-17] MEDS ORDERED: Sodium Chloride 0.9% 10 ML ONE (14:17)
[2018-11-17] MEDS ORDERED: Lidocaine 1% PF 5 ML VIAL ONE (15:07)
[2018-11-17] MEDS ORDERED: Rocuronium Bromide 10 MG/ML (10ML VIAL) ONE (15:07)
[2018-11-17] MEDS ORDERED: Dexamethasone 20 MG/5 ML VIAL ONE (15:07)
[2018-11-17] MEDS ORDERED: PROPOFOL 200 MG/20 ML VIAL ONE (15:07)
[2018-11-17] MEDS ORDERED: Glycopyrrolate 0.2 MG/ML 5 ML SYRINGE ONE (15:07)
[2018-11-17] MEDS ORDERED: Ondansetron PF 4 MG/2 ML Vial ONE (15:07)
[2018-11-17] MEDS ORDERED: ePHEDrine 50 MG/ML VIAL ONE (15:07)
== END 2018-11-17 14:35 | disposition home or self-care (01) ==
LOC: SDC 07:48
PROVIDERS: ATTEND Specialist
PROC: 03180ZD Bypass Left Brachial Artery to Upper Arm Vein, Open Approach (ICD-10-PCS; principal; 2018-11-17)
DX: I12.0 Hypertensive chronic kidney disease with stage 5 chronic kidney disease or end stage renal disease (principal); N18.6 End stage renal disease; D63.1 Anemia in chronic kidney disease; T85.611A Breakdown (mechanical) of intraperitoneal dialysis catheter, initial encounter; M10.9 Gout, unspecified; M19.90 Unspecified osteoarthritis, unspecified site; E66.9 Obesity, unspecified; Z68.32 Body mass index [BMI] 32.0-32.9, adult; Z79.02 Long term (current) use of antithrombotics/antiplatelets; Z79.82 Long term (current) use of aspirin; Z79.899 Other long term (current) drug therapy; Z88.2 Allergy status to sulfonamides; Z88.8 Allergy status to other drugs, medicaments and biological substances; Z91.041 Radiographic dye allergy status; Z91.048 Other nonmedicinal substance allergy status; Z99.2 Dependence on renal dialysis
CPT/HCPCS: 80048; 85025; 93005; 93010; J0131; J0670; J1100; J1644; J2001; J2405; J2550; J2704; J2720; J3010; J3490; J7050

== ENCOUNTER 2019-05-29 10:27 | Day surgery (SDC) | payer MEDICARE, BC ==
--- NOTE | 2019-05-28 10:10 | HP ---
HISTORY OF PRESENT ILLNESS: Tonja Tripathi is a 63-year-old female, end-stage renal disease, dialyzes at [facility] at [facility] ([place], [place]), Tuesday, Tuesday, and Tuesday. She is followed by Dr. Zhu. She had a primary fistula, 11/17/2018, performed inflow from the proximal radial artery, outflow primary cephalic vein, although communication with basilic vein was noted. She is seen to have good outflow of the cephalic vein tract with 3.5 mm coronary dilator placed. I placed a laparoscopic peritoneal dialysis catheter on 06/27/2018, after laparoscopic evaluation of a pelvic fluid collection, adhesiolysis, omentopexy excision to facilitate function for peritoneal dialysis catheter. Prior to that, she had placement of a right IJ dialysis catheter on 03/25/2014 due to a dysfunctional catheter. After multiple attempts, could not salvage her catheter and peritoneal dialysis catheter was eventually removed. Her fistula seemed not to be maturing. The patient underwent a fistulogram at [facility] noting primary outflow with the basilic vein. The brachial artery was cannulated to facilitate evaluation of the fistula and the cephalic vein outflow was minimal and small. Plan at this time is a basilic vein transposition fistula. She understands risks and benefits and consents. MEDICATIONS: 1. Medrol Dosepak. 2. Clonidine twice a day. 3. Crestor 5 mg a day. 4. Singulair once a day, 1 mg. 5. Sensipar 30 mg with meals once a day. 6. Aspirin 81 mg a day. 7. Renvela 800 mg three tablets with meals orally. 8. D3 1000 mg tablets 5 per week orally. 9. Minoxidil 2.5 mg twice a day. 10. Hydrocodone p.r.n. pain. 11. Allopurinol 100 mg a day. 12. Alpha-lipoic acid. 13. Calcitriol. 14. Colace. 15. Dulcolax. 16. Fosrenol. 17. Symbicort. 18. Turmeric. PAST MEDICAL HISTORY: End-stage renal disease, on maintenance dialysis, hypertension, arthritis, anemia. ALLERGIES: SULFA, IODINE CONTRAST. PAST SURGICAL HISTORY: Hysterectomy in 2002, cardiac stress test in 2009, negative. Tonsillectomy in 1975. CT-guided drainage of abdominal abscess, which turned out to be a fluid collection that was noninfectious. Laparoscopic PD catheter placed and laparoscopically revised and subsequently removed as it would not function well. Left arm primary fistula on 11/17/2018. Fistulogram, March 13 at [facility]. REVIEW OF SYSTEMS: Ten-point noncontributory. PHYSICAL EXAMINATION: VITAL SIGNS: Weight 201 pounds, height 63 inches, blood pressure 83/47, pulse 70, temperature 98.1 degrees. HEAD, EARS, EYES, NOSE AND THROAT: Unremarkable. LUNGS: Clear to auscultation. CARDIAC: Regular rate and rhythm without murmur or gallop. ABDOMEN: Soft and nontender. EXTREMITIES: Unremarkable. Left arm fistula, thrill and bruit present, more prominent over the basilic vein. Wound well healed. ASSESSMENT: Dysfunctional left arm fistula. PLAN: Basilic vein transposition fistula. She understands risks and benefits, consents. Procedure explained, questions answered. Job ID: [id number]
[2019-05-28 11:19] VITALS: BMI 36.6
[2019-05-29] MEDS ORDERED: Bupivacaine HCl 0.5%/Epinephrine 1:200,000/PF 30 ml Vial ONE ×2 (11:11→12:44)
[2019-05-29] MEDS ORDERED: ePHEDrine 50 MG/ML VIAL ONE (11:26)
[2019-05-29 11:38] LABS: #Basophils 0.1 thou/uL (0.0-0.2); #Eosinphils 0.4 thou/uL (0.0-0.7); #Lymphocytes 1.3 thou/uL (1.20-3.40); #Monocytes 0.5 thou/uL (0.11-0.59); #Neutrophils 3.9 thou/uL (1.40-6.50); %Eosinophils 6.7 % (0.0-10.0); %Lymphocytes 21.4 % (21.0-51.0); %Monocytes 7.6 % (0.0-10.0); %Neutrophils 63.3 % (42.0-75.0); Hemoglobin 11.2 g/dL (12.0-16.0); Mean Corpuscular HGB CONC 33.1 g/dL (32.0-36.0); Mean Corpuscular Hemoglobin 35.1 pg (27.0-31.0); Mean Platelet Volume 9.1 fL (7.4-10.4); Platelet Count 145 thou/uL (130-400); RBC Distribution Width 15.7 % (11.5-14.5); Red Blood Cell (RBC) Count 3.18 mill/uL (4.20-5.40); White Blood Cell (WBC) Count 6.1 thou/uL (4.8-10.8)
[2019-05-29 11:56] LABS: Anion Gap 19 mmol/L (10-20); BUN (Urea Nitrogen) 32 mg/dL (9.8-20.1); Calc. Creatinine Clearance 15 mL/min (70-130); Calcium 8.6 mg/dL (7.8-10.44); Carbon Dioxide 29 mmol/L (23-31); Chloride 95 mmol/L (98-107); Estimated GFR-MDRD 8; Glucose 98 mg/dL (80-115); Potassium 4.5 mmol/L (3.5-5.1); Sodium 138 mmol/L (136-145)
[2019-05-29] MEDS ORDERED: Midazolam HCl 2 mg/2 ml Vial ONE ×3 (12:09→13:48)
[2019-05-29] MEDS ORDERED: Propofol 1,000 MG/100 ML VIAL IV ONE (12:39)
[2019-05-29] MEDS ORDERED: Fentanyl 100 MCG/2 ML VIAL ONE (12:40)
[2019-05-29] MEDS ORDERED: Ketamine 50 MG/ML (10ML VIAL) ONE ×2 (12:40→12:57)
[2019-05-29] MEDS ORDERED: Heparin 5,000 UNITS/ML VIAL ONE (12:44)
[2019-05-29] MEDS ORDERED: Ioversol 68 % 50 ML VIAL ONE (12:44)
[2019-05-29] MEDS ORDERED: Protamine Sulfate 50 MG/5 ML VIAL ONE (12:44)
[2019-05-29] MEDS ORDERED: Lidocaine 2% PF 5 ML VIAL ONE (12:44)
--- NOTE | 2019-05-29 15:24 | OP ---
DATE OF PROCEDURE: 05/29/2019 PREOPERATIVE DIAGNOSES: End-stage renal disease, morbid obesity, dialysis fistula dysfunction (fistulogram at [facility] suggested only outflow basilic vein). POSTOPERATIVE DIAGNOSES: End-stage renal disease, dialysis fistula malfunction, outflow both the cephalic and basilic vein. PROCEDURES PERFORMED: Revision of left arm arteriovenous fistula without thrombectomy. Note, intraoperative angiograms, ligation of basilic outflow to direct all outflow to the cephalic vein. ANESTHESIA: Regional, TIVA. DESCRIPTION OF PROCEDURE: The patient was taken to the operating room, where under regional anesthesia, left upper extremity was prepared with ChloraPrep and draped in routine fashion. Incision was made in the proximal volar forearm and the distal upper arm, carried down through skin and subcutaneous tissue. The outflow was both the cephalic and basilic veins. The cephalic vein fistula was markedly dilated and very large. For this reason, the basilic vein communication was dissected free and a vascular clamp applied and 16-gauge Angiocath placed in the fistula and angiograms obtained using fluoroscopy, revealing patent cephalic vein outflow to the central circulation. There were minimal collaterals. It was felt that this fistula did not need to be transposed, and she certainly did not need a basilic vein transposition fistula. The basilic vein outflow tract was ligated with a 2-0 silk tie. The puncture site was controlled with a 6-0 Prolene. Subcutaneous tissue was approximated with 3-0 Monocryl, skin with subdermal 4-0 Monocryl, and [place] glue applied. PLAN: Plan is to access this fistula in 2 weeks at [facility]. She will see me in the office in 3 to 4 weeks to hopefully remove her dialysis catheter. Job ID: [id number]
--- NOTE | 2019-05-29 15:45 | RAD ---
EXAM: XR Angio Upper Ext Lt Ltd PROVIDED CLINICAL HISTORY: Left arm fistulogram/cephalic. End-stage renal disease. Left upper extremity AV fistula creation. COMPARISON: None FINDINGS/IMPRESSION: Provided angiographic images labeled left upper extremity are submitted. Images demonstrate contrast opacification of a venous structure with small collateral veins present. Correlation with intraoperative findings is recommended.
[2019-05-29] MEDS ORDERED: Heparin 10,000 UNITS/ 10 ML VIAL ONE (15:46)
== END 2019-05-29 16:00 | disposition home or self-care (01) ==
LOC: SDC 10:27
PROVIDERS: ATTEND Specialist
PROC: 05WY07Z Revision of Autologous Tissue Substitute in Upper Vein, Open Approach (ICD-10-PCS; principal; 2019-05-29)
DX: T82.590A Other mechanical complication of surgically created arteriovenous fistula, initial encounter (principal); I12.0 Hypertensive chronic kidney disease with stage 5 chronic kidney disease or end stage renal disease; N18.6 End stage renal disease; M19.90 Unspecified osteoarthritis, unspecified site; E66.01 Morbid (severe) obesity due to excess calories; Z68.36 Body mass index [BMI] 36.0-36.9, adult; Z79.82 Long term (current) use of aspirin; Z79.899 Other long term (current) drug therapy; Z88.2 Allergy status to sulfonamides; Z88.8 Allergy status to other drugs, medicaments and biological substances; Z91.041 Radiographic dye allergy status; Z91.048 Other nonmedicinal substance allergy status; Z99.2 Dependence on renal dialysis
CPT/HCPCS: 76000; 80048; 85025; 93005; 93010; J0670; J0690; J1644; J2001; J2250; J2704; J2720; J3010; J3490; Q9967

== ENCOUNTER 2019-10-23 12:49 | Day surgery (SDC) | payer MEDICARE, BC ==
[2019-10-22 13:46] VITALS: BMI 38.6
--- NOTE | 2019-10-23 07:37 | HP ---
HISTORY OF PRESENT ILLNESS: Tonja Tripathi is a 64-year-old female, 222 pounds, 63 inches, whom we have been working towards establishing dialysis access. On 03/25/2014, she had a dysfunctional PD catheter with effusions and replaced the right IJ cuffed tunneled hemodialysis catheter. The catheter had been placed elsewhere. On 04/21/2018, she had a laparoscopic evaluation, evacuation of pelvic abscess, adhesiolysis, laparoscopic omentopexy, and excision of sebaceous cyst, left lower quadrant groin because of malfunction of her PD catheter. On 06/27/2018, laparoscopic peritoneal dialysis catheter placement, laparoscopic adhesiolysis. On 11/17/2018, left arm primary fistula, antecubital vein outflow primary cephalic vein, although communication in basilic vein noted. On 05/29/2019, revision of left arm AV fistula without thrombectomy. I ligated the basilic vein outflow and direct outflow over the cephalic vein. Despite that, she may continue to have problems accessing her fistula. She dialyzes Tuesday, Tuesday, Tuesday, at [facility] and followed by Dr. Lo. I can hear a good thrill and bruit in her left upper arm fistula. Due to her obesity, plan transposition. This is an outpatient regional TIVA versus general anesthesia choice. MEDICATIONS: 1. Clonidine. 2. Crestor. 3. Singulair. 4. Sensipar. 5. Aspirin. 6. Renvela. 7. Minoxidil. 8. Hydrocodone as needed. 9. Allopurinol. 10. Alpha-lipoic acid. 11. Colace. 12. Dulcolax. 13. Fosrenol. 14. Levothyroxine. 15. Midodrine. 16. Plavix. 17. ProAir. 18. Turmeric. 19. B12. 20. Levothyroxine. ALLERGIES: SULFA AND IODINE. PAST MEDICAL HISTORY: Anemia, arthritis, hypertension, end-stage renal disease, on dialysis Tuesday, Tuesday, Tuesday at [facility]. PAST SURGICAL HISTORY: Hysterectomy, cardiac stress test in past unremarkable, dialysis access as noted above. fistula revision. REVIEW OF SYSTEMS: Ten-point noncontributory. PHYSICAL EXAMINATION: VITAL SIGNS: Weight 222 pounds, height 63 inches. Blood pressure 117/59, temperature 98.6 degrees. HEAD, EARS, EYES, NOSE, AND THROAT: Unremarkable. LUNGS: Clear to auscultation. CARDIAC: Regular rate and rhythm without murmur or gallop. ABDOMEN: Soft, obese, and nontender. Left upper arm fistula, good thrill and bruit. Palpable in her upper arm. ASSESSMENT AND PLAN: Obesity with inability to access left cephalic vein fistula. PLAN: Superficialization and transposition. She understands risks and benefits. This could be done under general or regional per the patient choice surgery. She understands risks and benefits, consents. Job ID: [id number]
[~2019-10-23 12:49] MED LIST changes: +Dexamethasone 20 MG/5 ML VIAL ONE; +Glycopyrrolate 0.2 MG/ML 5 ML SYRINGE ONE; -Iopamidol 370 76% 100 ML VIAL ONE; +Metoclopramide HCl 10 MG/2 ML VIAL ONE; +Ondansetron PF 4 MG/2 ML Vial ONE; +PHENYLEPHRINE-NS 100 MCG/ML 10 ML SYRINGE ONE; +PROPOFOL 200 MG/20 ML VIAL ONE; +Ropivacaine 0.5% HCl/PF (150 MG/30 ML VIAL) ONE; +ePHEDrine/0.9% NaCl/PF SYRINGE 50 mg/10 ml ONE
[2019-10-23 14:03] LABS: Anion Gap 16 mmol/L (10-20); BUN (Urea Nitrogen) 28 mg/dL (9.8-20.1); Calc. Creatinine Clearance 14 mL/min (70-130); Carbon Dioxide 32 mmol/L (23-31); Chloride 99 mmol/L (98-107); Estimated GFR-MDRD 7; Glucose 135 mg/dL (80-115); Potassium 4.6 mmol/L (3.5-5.1); Sodium 142 mmol/L (136-145)
[2019-10-23 14:49] LABS: #Basophils 0.1 thou/uL (0.0-0.2); #Eosinphils 0.4 thou/uL (0.0-0.7); #Lymphocytes 2.3 thou/uL (1.20-3.40); #Monocytes 0.6 thou/uL (0.11-0.59); #Neutrophils 6.4 thou/uL (1.40-6.50); %Eosinophils 3.6 % (0.0-10.0); %Lymphocytes 23.7 % (21.0-51.0); %Monocytes 5.9 % (0.0-10.0); %Neutrophils 65.8 % (42.0-75.0); Hemoglobin 13.8 g/dL (12.0-16.0); Mean Corpuscular HGB CONC 33.1 g/dL (32.0-36.0); Mean Corpuscular Hemoglobin 36.8 pg (27.0-31.0); Mean Platelet Volume 9.2 fL (7.4-10.4); Platelet Count 201 thou/uL (130-400); RBC Distribution Width 14.9 % (11.5-14.5); Red Blood Cell (RBC) Count 3.75 mill/uL (4.20-5.40); White Blood Cell (WBC) Count 9.7 thou/uL (4.8-10.8)
[2019-10-23 14:57] LABS: Anisocytosis SLIGHT = 6-15 cells (100X) (0-5/hpf); MDiff Complete? YES; Macrocytosis MODERATE=16-30 cells (100X) (0-5/hpf); Platelet Morphology Comment Appears Adequate; Polychromasia MODERATE = 3-4 cells (100X) (0-2/hpf)
[2019-10-23] MEDS ORDERED: Fentanyl 100 MCG/2 ML VIAL ONE (15:32)
[2019-10-23] MEDS ORDERED: Ioversol 68 % 50 ML VIAL ONE (15:41)
[2019-10-23] MEDS ORDERED: Lidocaine 2% PF 5 ML VIAL ONE (15:41)
[2019-10-23] MEDS ORDERED: PROPOFOL 20 ML ONE (15:41)
[2019-10-23] MEDS ORDERED: Heparin 5,000 UNITS/ML VIAL ONE (15:41)
[2019-10-23] MEDS ORDERED: Bupivacaine PF 0.5% 30 ML VIAL ONE (15:41)
[2019-10-23] MEDS ORDERED: Protamine Sulfate 50 MG/5 ML VIAL ONE (15:41)
[2019-10-23] MEDS ORDERED: Lidocaine 1% w/Epinephrine 1:100K 20 ML VIAL ONE (15:42)
[2019-10-23] MEDS ORDERED: Midazolam HCl 2 mg/2 ml Vial ONE (15:52)
[2019-10-23] MEDS ORDERED: Bupivacaine 0.25% HCL 30 ML VIAL ONE (16:48)
[2019-10-23] MEDS ORDERED: Morphine Sulfate 2 MG/ML SYRINGE SLOW IVP PRN (17:52)
[2019-10-23] MEDS ORDERED: PACU-Morphine 4MG/ML VIAL SLOW IVP PRN (17:52)
[2019-10-23] MEDS ORDERED: Ondansetron HCl/PF 4 MG/2 ML Vial IVP PRN (17:52)
[2019-10-23] MEDS ORDERED: Promethazine HCl 25 MG/ML VIAL SLOW IVP PRN (17:52)
[2019-10-23] MEDS ORDERED: HYDROmorphone 2 MG/ML VIAL SLOW IVP PRN (17:52)
[2019-10-23] MEDS ORDERED: Promethazine HCl 25 MG/ML VIAL IM PRN (17:52)
[2019-10-23] MEDS ORDERED: Heparin 10,000 UNITS/ 10 ML VIAL ONE (19:12)
--- NOTE | 2019-10-24 00:56 | OP ---
DATE OF PROCEDURE: 10/23/2019 PREOPERATIVE DIAGNOSES: Morbid obesity, end-stage renal disease. POSTOPERATIVE DIAGNOSES: Morbid obesity, end-stage renal disease. PROCEDURES PERFORMED: Left arm cephalic vein transposition fistula. ANESTHESIA: 0.25% Marcaine, 60 mL mixed with 1% Xylocaine with epinephrine 20 mL. Note, this fistula had been revised on one occasion, ligated the basilic outflow, but still they could not access it. She had abundant fatty tissue over this and is too deep to access. DESCRIPTION OF PROCEDURE: The patient was taken to the operating room, where under regional anesthesia, left upper extremity was prepared with ChloraPrep and draped in routine fashion. utilized. Incision was made from the proximal volar forearm through the old scar and carried out the anterior upper arm to the deltopectoral groove, unroofing the cephalic vein with a thick layer of adipose tissue. The vein dissected free. Branches were divided between 4-0 silk ties and clips mobilized far into the deltopectoral groove. A flap of subcutaneous tissue created medially to accommodate the fistula and superficialize it. Good hemostasis obtained with cautery. Surgicel placed in the harvest bed. Fatty tissue approximated deep layers with continuous suture of 3-0 Monocryl. Fatty tissue flap approximated with an another layer of continuous suture of 3-0 Monocryl. Skin approximated with eleazar. Sterile dressing applied. The patient tolerated the procedure well. Job ID: [id number]
== END 2019-10-23 19:35 | disposition home or self-care (01) ==
LOC: SDC 12:49
PROVIDERS: ATTEND Specialist
PROC: 05SF0ZZ Reposition Left Cephalic Vein, Open Approach (ICD-10-PCS; principal; 2019-10-23)
DX: E66.01 Morbid (severe) obesity due to excess calories (principal); I12.0 Hypertensive chronic kidney disease with stage 5 chronic kidney disease or end stage renal disease; N18.6 End stage renal disease; M19.90 Unspecified osteoarthritis, unspecified site; Z68.38 Body mass index [BMI] 38.0-38.9, adult; Z79.02 Long term (current) use of antithrombotics/antiplatelets; Z79.82 Long term (current) use of aspirin; Z79.899 Other long term (current) drug therapy; Z88.2 Allergy status to sulfonamides; Z88.8 Allergy status to other drugs, medicaments and biological substances; Z91.041 Radiographic dye allergy status; Z91.048 Other nonmedicinal substance allergy status; Z99.2 Dependence on renal dialysis
CPT/HCPCS: 80048; 85025; 93005; 93010; J0690; J1644; J2001; J2250; J2704; J2720; J3010; Q9967; S0020

== ENCOUNTER 2020-10-16 07:37 | Outpatient (CLI) | payer MEDICARE, BC ==
[2020-10-16 18:26] LABS: SARS-CoV-2 MS2 Positive; SARS-CoV-2 N Gene Negative; SARS-CoV-2 S Gene Negative; SARS-CoV-2 by NAA Not Detected (NotDetected); SARS-CoV-2 orf1ab Negative
== END 2020-10-16 07:38 | disposition home or self-care (01) ==
LOC: LABBT 07:37
PROVIDERS: ATTEND Specialist
DX: Z01.818 Encounter for other preprocedural examination (principal); Z20.822 Contact with and (suspected) exposure to COVID-19
CPT/HCPCS: 93005; U0003; U0005; 87635; 93010

== ENCOUNTER 2020-10-21 09:40 | Day surgery (SDC) | payer MEDICARE, BC ==
[~2020-10-21 09:40] MED LIST changes: +Lidocaine 1% PF 5 ML VIAL ONE; -Metoclopramide HCl 10 MG/2 ML VIAL ONE; +Rocuronium Bromide 10 MG/ML (10ML VIAL) ONE; -Ropivacaine 0.5% HCl/PF (150 MG/30 ML VIAL) ONE; +ePHEDrine 50 MG/ML VIAL ONE; -ePHEDrine/0.9% NaCl/PF SYRINGE 50 mg/10 ml ONE
[2020-10-21] MEDS ORDERED: EPINEPHrine 1 MG/ML AMP ONE (09:58)
[2020-10-21] MEDS ORDERED: Bupivacaine PF 0.5% 30 ML VIAL ONE (09:58)
[2020-10-21] MEDS ORDERED: Bacitracin Zinc Ointment 30 gm TUBE ONE (09:58)
[2020-10-21] MEDS ORDERED: Lidocaine 1% (PF) 30 ML VIAL ONE (09:58)
[2020-10-21] MEDS ORDERED: Fentanyl 100 MCG/2 ML VIAL ONE (11:01)
[2020-10-21 11:05] LABS: Hemoglobin 14.7 g/dL (12.0-16.0); Mean Corpuscular HGB CONC 32.5 g/dL (32.0-36.0); Mean Corpuscular Hemoglobin 36.7 pg (27.0-31.0); Mean Platelet Volume 9.6 fL (7.4-10.4); Platelet Count 155 thou/uL (130-400); RBC Distribution Width 14.5 % (11.5-14.5); Red Blood Cell (RBC) Count 4.01 mill/uL (4.20-5.40); White Blood Cell (WBC) Count 8.9 thou/uL (4.8-10.8)
[2020-10-21 11:06] LABS: #Basophils 0.1 thou/uL (0.0-0.2); #Eosinphils 0.3 thou/uL (0.0-0.7); #Monocytes 0.6 thou/uL (0.11-0.59); #Neutrophils 5.9 thou/uL (1.40-6.50); %Basophils 0.8 % (0.0-1.0); %Lymphocytes 22.3 % (21.0-51.0); %Monocytes 7.2 % (0.0-10.0); %Neutrophils 66.7 % (42.0-75.0)
[2020-10-21 11:16] LABS: Anion Gap 21 mmol/L (10-20); BUN (Urea Nitrogen) 44 mg/dL (9.8-20.1); Calc. Creatinine Clearance 0 mL/min (70-130); Calcium 8.9 mg/dL (7.8-10.44); Carbon Dioxide 29 mmol/L (23-31); Chloride 95 mmol/L (98-107); Glucose 214 mg/dL (80-115); Potassium 5.5 mmol/L (3.5-5.1); Sodium 139 mmol/L (136-145)
[2020-10-21 11:23] LABS: MDiff Complete? YES; Macrocytosis MODERATE=16-30 cells (100X) (0-5/hpf); Platelet Morphology Comment Appears Adequate; Polychromasia SLIGHT = 2-3 cells (100X) (0-2/hpf); Stomatocytes SLIGHT = 2-5 cells (100X) (0-1/hpf)
[2020-10-21] MEDS ORDERED: SUGAMMADEX SODIUM 200 MG/2 ML VIAL ONE (13:19)
--- NOTE | 2020-10-21 14:16 | OP ---
DATE OF PROCEDURE: 10/21/2020 PREOPERATIVE DIAGNOSES: 1. Large lipoma, midback, slightly left to midline. 2. Sebaceous cyst, posterior left upper arm. 3. End-stage renal disease. POSTOPERATIVE DIAGNOSES: 1. Large lipoma, midback, slightly left to midline. 2. Sebaceous cyst, posterior left upper arm. 3. End-stage renal disease. PROCEDURES PERFORMED: 1. Excision of lipoma, left to midline, midback, 7 cm incision. 2. Excision of sebaceous cyst, posterior left upper arm, 3.5 cm incision. ANESTHESIA: General LMA, local with 0.5% Marcaine 30 mL, mixed with 1% Xylocaine with epinephrine 20 mL. DESCRIPTION OF PROCEDURE: The patient was taken to the operating room where under general anesthesia LMA in the right lateral decubitus position, properly padded with a cifuentes bag. Back and posterior left upper arm were prepared with ChloraPrep and draped in routine fashion. Incision was made of lengths as described, carried down to skin and subcutaneous tissue, excising the lipoma, then excising the sebaceous cyst, excising ellipse of skin overlying it. Hemostasis was gained with cautery. The lipoma was excised down deep to the fascia overlying the musculature. Good hemostasis was obtained with cautery in each wound. Subcutaneous tissue was approximated with 3-0 Monocryl, skin with subdermal 4-0 Monocryl, and [place] glue applied. The patient tolerated the procedure well. Job ID: [id number]
== END 2020-10-21 15:34 | disposition home or self-care (01) ==
LOC: SDC 09:40
PROVIDERS: ATTEND Specialist
PROC: 0JB70ZZ Excision of Back Subcutaneous Tissue and Fascia, Open Approach (ICD-10-PCS; principal; 2020-10-21)
PROC: 0HBCXZZ Excision of Left Upper Arm Skin, External Approach (ICD-10-PCS; 2020-10-21)
DX: D17.1 Benign lipomatous neoplasm of skin and subcutaneous tissue of trunk (principal); L72.0 Epidermal cyst; D64.9 Anemia, unspecified; M19.90 Unspecified osteoarthritis, unspecified site; I10 Essential (primary) hypertension; Z79.82 Long term (current) use of aspirin; Z79.899 Other long term (current) drug therapy; Z88.2 Allergy status to sulfonamides; Z88.8 Allergy status to other drugs, medicaments and biological substances; Z91.041 Radiographic dye allergy status; Z91.048 Other nonmedicinal substance allergy status
CPT/HCPCS: 36415; 80048; 85025; 88304; J0171; J0690; J1100; J2001; J2405; J2704; J3010; J3490; S0020